=== PATIENT | female | born 1970 | race Hispanic/Latino ===

== ENCOUNTER 2017-10-15 11:15 | Outpatient (CLI) | payer MEDICARE, MEDICAID | END 2017-10-15 11:16 | disposition home or self-care (01) | LOC: BICRAD 11:15 | PROVIDERS: ATTEND Internal Medicine | DX: J01.90 Acute sinusitis, unspecified (principal) | CPT/HCPCS: 70220; 71046 ==

== ENCOUNTER 2017-12-31 14:02 | Emergency (ER) | payer MEDICARE, MEDICAID ==
[2017-12-31] MEDS ORDERED: ISOVUE-370 76%-LOCM 1 ML ONE (15:11)
[2017-12-31 15:17] LABS: #Eosinphils 0.1 thou/uL (0.0-0.7); #Lymphocytes 1.7 thou/uL (1.20-3.40); #Monocytes 0.4 thou/uL (0.11-0.59); #Neutrophils 3.7 thou/uL (1.40-6.50); %Basophils 0.5 % (0.0-1.0); %Eosinophils 2.5 % (0.0-10.0); %Lymphocytes 28.9 % (21.0-51.0); %Monocytes 6.1 % (0.0-10.0); Hemoglobin 13.8 g/dL (12.0-16.0); Mean Corpuscular HGB CONC 32.5 g/dL (32.0-36.0); Mean Corpuscular Hemoglobin 27.1 pg (27.0-31.0); Mean Corpuscular Volume 83.4 fl (81.0-99.0); Mean Platelet Volume 7.6 fL (7.4-10.4); Platelet Count 279 thou/uL (130-400); RBC Distribution Width 12.9 % (11.5-14.5); Red Blood Cell (RBC) Count 5.08 mill/uL (4.20-5.40)
[2017-12-31 15:40] LABS: ALT (SGPT) 21 U/L (8-55); AST (SGOT) 20 U/L (5-34); Alkaline Phosphatase 120 U/L (40-150); Anion Gap 12 mmol/L (10-20); BUN (Urea Nitrogen) 16 mg/dL (7.0-18.7); Bilirubin, Total 0.2 mg/dL (0.2-1.2); Calc. Creatinine Clearance 0 mL/min (70-130); Calcium 9.2 mg/dL (7.8-10.44); Carbon Dioxide 21 mmol/L (22-29); Chloride 108 mmol/L (98-107); Estimated GFR-MDRD 89; Globulin 3.6 g/dL (2.4-3.5); Glucose 119 mg/dL (70-105); Potassium 3.6 mmol/L (3.5-5.1); Protein, Total 7.6 g/dL (6.0-8.3); Sodium 137 mmol/L (136-145)
[2017-12-31] MEDS ORDERED: Dexamethasone 4 mg/ml Vial ONE (16:15)
[2017-12-31] MEDS ORDERED: Ketorolac Tromethamine 30 MG/ML VIAL ONE (16:15)
--- NOTE | 2017-12-31 16:38 | CT ---
EXAM: FACE CT WITH CONTRAST 12/31/17 COMPARISON: Head CT 07/06/15, 05/12/07, brain MRI 02/19/15. TECHNIQUE: Postcontrast face CT is performed in the axial plane. Reformatted images are submitted for interpreta tion. HISTORY: Pain. Parotiditis. FINDINGS: The visualized brain parenchyma is unremarkable. Bilateral ocular lenses are appropriately located. B oth globes are intact. Retrobulbar fat is preserved. Symmetric attenuation of the optic nerve and ocu lar rectus muscles. Adequate aeration of the sinuses and mastoid air cells. Aerodigestive tract is patent. No mucosal abnormality. Symmetric attenuation of the submandibular gla nd and sternocleidomastoid muscles. Nonspecific, nonenlarged soft tissue neck lymph nodes. Visualized great vessels of the neck are unrem arkable. Bilateral intraparotid lymph nodes are noted. Right parotid gland is fatty replaced and unremarkable. There is subtle hyperdensity involving the superficial lobe of the left parotic gland measuring 1.0 x 2.6 cm. Findings may represent a ill-defined enhancing mass versus possible fibrotic change or norm al pancreatic parenchyma that has not undergone fatty replacement. There is no evidence of inflammato ry change with regard to the parotid gland or periparotid soft tissues. IMPRESSION: Hyperdensity involving the superficial lobe of the left parotid gland without evidence of inflammator y change. Differential as detailed above. Followup imaging and ENT consultation is recommended. POS: [facility]
== END 2017-12-31 16:20 | disposition home or self-care (01) ==
LOC: ERS 14:02
DX: K11.8 Other diseases of salivary glands (principal)
CPT/HCPCS: 36415; 70487; 80053; 85025; 96374; 96375; J1100; J1885

== ENCOUNTER 2018-01-15 09:53 | Day surgery (SDC) | payer MEDICARE, MEDICAID ==
[2018-01-14 16:20] VITALS: BMI 36.6
[2018-01-15 10:50] LABS: BHCG - Serum Negative (NEGATIVE); Pregs Control Background? CLEAR/WHITE (CLR/WHITE); Pregs Control Bar Appear? YES (CONTROL BAR)
[2018-01-15] MEDS ORDERED: Lidocaine 1% w/Epinephrine 1:200K 30 ML VIAL ONE ×2 (11:37→11:44)
[2018-01-15] MEDS ORDERED: Fentanyl 100 MCG/2 ML VIAL ONE ×3 (11:42→14:28)
[2018-01-15] MEDS ORDERED: Promethazine HCl 25 MG/ML VIAL ONE (11:43)
[2018-01-15] MEDS ORDERED: Ondansetron HCl/PF 4 MG/2 ML Vial ONE ×3 (11:43→15:34)
[2018-01-15] MEDS ORDERED: Midazolam HCl 2 mg/2 ml Vial ONE (11:43)
[2018-01-15] MEDS ORDERED: Dexamethasone 20 MG/5 ML VIAL ONE (15:34)
[2018-01-15] MEDS ORDERED: Lidocaine 1% PF 5 ML VIAL ONE (15:34)
[2018-01-15] MEDS ORDERED: PROPOFOL 200 MG/20 ML VIAL ONE (15:34)
[2018-01-15] MEDS ORDERED: Hydrocodone-Acetamin 15 ML UDCUP ONE (15:44)
--- NOTE | 2018-01-16 00:18 | OP ---
DATE OF SERVICE: 01/15/2018 PREOPERATIVE DIAGNOSIS: Left parotid mass. POSTOPERATIVE DIAGNOSIS: Left parotid mass. PROCEDURES: Left superficial parotidectomy with facial nerve monitoring. SURGEON: Nawaf Acosta M.D. ESTIMATED BLOOD LOSS: 50 mL. COMPLICATIONS: None. ANESTHESIA: GETA. PROCEDURE: The patient was taken to the operating room and placed on the table. General endotrachea l anesthesia was obtained by the Anesthesia staff. Tube was secured in the right lower lip and shoul theodore roll was placed. The facial nerve monitor was placed into the orbicularis viri and orbicularis o culi muscles and was turned on setup and remained on throughout the procedure. Following this, the p atient was prepped and draped in standard surgical fashion. Modified Travis-type incision was made. The skin and subcutaneous tissues. Subplatysmal flaps were elevated on the neck and then extending t o a fat up fat down flat over the parotid gland. Following this, the gland was released from the att achment to the anterior sternocleidomastoid muscle and was retracted anteriorly. Dissection was then carried medially down the tragal cartilage, exposing the mastoid and stylomastoid area. Within this area, the facial nerve was identified. It was dissected laterally as it was, its superficial lobe w as freed from the deep lobe attachments. The area of multiple conglomerated lymph nodes and tumor li ke mass in the tail of parotid and posterior aspect of the parotid were removed. This wound was irri gated. Drain was placed and Monocryl stitches were used to reapproximate the parotid fascia, sternoc leidomastoid fascia as well as the platysmal layers. Subcuticular layers and Prolene stitches were p laced to reapproximate the skin. The patient tolerated the procedure well. Facial nerve monitor was turned off.
== END 2018-01-15 16:13 | disposition home or self-care (01) ==
LOC: SDC 09:53
PROVIDERS: ATTEND Otolaryngology Plastic Surgery within the Head & Neck
PROC: 0CBC0ZZ Excision of Left Parotid Duct, Open Approach (ICD-10-PCS; principal; 2018-01-15)
PROC: 00BM0ZZ Excision of Facial Nerve, Open Approach (ICD-10-PCS; 2018-01-15)
DX: K11.8 Other diseases of salivary glands (principal); Z86.73 Personal history of transient ischemic attack (TIA), and cerebral infarction without residual deficits; Z79.82 Long term (current) use of aspirin; Z79.2 Long term (current) use of antibiotics
CPT/HCPCS: 36415; 84703; 85014; 88307; 88312; 96374; J0131; J1100; J2001; J2250; J2405; J2550; J2704; J3010

== ENCOUNTER 2018-05-13 19:48 | Emergency (ER) | payer MEDICARE, MEDICAID ==
[~2018-05-13 19:48] MED LIST: ISOVUE-370 76%-LOCM 1 ML ONE
[2018-05-13 20:24] LABS: Bilirubin Negative (Negative); Blood, Urine Negative (Negative); Clarity CLEAR (Clear); Glucose, Urine (Dipstick) Negative (Negative); Leukocyte Small (Negative); Nitrite Negative (Negative); Protein, Urine (Dipstick) Negative (Neg-Trace); Specific Gravity, Urine 1.019 (1.002-1.036)
[2018-05-13 20:25] LABS: Bacteria/HPF Rare-Few HPF (None Seen); Hyaline Casts/LPF 0-3 HYALINE CAST LPF (0-3 Hyaline); Pathc Cast-AUWi Flag 0.14 (0-2.49); RBC/HPF 0-3 HPF (0-3)
[2018-05-13] MEDS ORDERED: Pantoprazole 40 MG VIAL ONE (22:42)
[2018-05-13] MEDS ORDERED: Metoclopramide HCl 10 MG/2 ML VIAL ONE (22:42)
[2018-05-13 22:44] LABS: #Eosinphils 0.2 thou/uL (0.0-0.7); #Lymphocytes 1.9 thou/uL (1.20-3.40); #Monocytes 0.5 thou/uL (0.11-0.59); %Basophils 0.3 % (0.0-1.0); %Eosinophils 2.7 % (0.0-10.0); %Lymphocytes 28.8 % (21.0-51.0); %Monocytes 7.2 % (0.0-10.0); Mean Corpuscular HGB CONC 33.1 g/dL (32.0-36.0); Mean Corpuscular Hemoglobin 27.3 pg (27.0-31.0); Mean Corpuscular Volume 82.4 fL (78.0-98.0); Mean Platelet Volume 7.4 fL (7.4-10.4); Platelet Count 284 thou/uL (130-400); RBC Distribution Width 12.7 % (11.5-14.5); Red Blood Cell (RBC) Count 4.75 mill/uL (4.20-5.40); White Blood Cell (WBC) Count 6.6 thou/uL (4.8-10.8)
[2018-05-13] MEDS ORDERED: Ondansetron PF 4 MG/2 ML Vial ONE (22:44)
[2018-05-13 22:50] LABS: BHCG - Serum Negative (NEGATIVE); Pregs Control Background? CLEAR/WHITE (CLR/WHITE); Pregs Control Bar Appear? YES (CONTROL BAR)
[2018-05-13 23:03] LABS: ALT (SGPT) 34 U/L (8-55); AST (SGOT) 27 U/L (5-34); Albumin 3.9 g/dL (3.5-5.0); Alkaline Phosphatase 164 U/L (40-150); Anion Gap 13 mmol/L (10-20); BUN (Urea Nitrogen) 15 mg/dL (7.0-18.7); Bilirubin, Total 0.2 mg/dL (0.2-1.2); Calc. Creatinine Clearance 0 mL/min (70-130); Calcium 9.4 mg/dL (7.8-10.44); Carbon Dioxide 21 mmol/L (22-29); Chloride 106 mmol/L (98-107); Estimated GFR-MDRD 77; Globulin 3.4 g/dL (2.4-3.5); Glucose 133 mg/dL (70-105); Lipase 28 U/L (8-78); Potassium 4.1 mmol/L (3.5-5.1); Protein, Total 7.3 g/dL (6.0-8.3); Sodium 136 mmol/L (136-145)
[2018-05-13] MEDS ORDERED: Dicyclomine 20 MG TAB ONE (23:03)
--- NOTE | 2018-05-13 23:16 | CT ---
CT OF THE ABDOMEN AND PELVIS WITH IV CONTRAST: 05/13/18 INDICATION: Periumbilical abdominal pain with burning and pulling that shoots up and down in the suprapubic epiga stric areas. COMPARISON: Prior exam dated 09/08/15. FINDINGS: There is wall thickening and pericolonic inflammatory stranding involving the proximal sigmoid colon. There is scattered colonic diverticula. There is hazy ground glass opacities seen with portions of the right middle lobe and right lower lobe . There is a small hiatal hernia. Gallbladder is surgically absent. Pancreas, adrenal gland and kidneys appear within normal limits. Spleen is normal appearing. IMPRESSION: No drainable fluid collection is evident. There is mild scattered degenerative and osteoarthritic kenia nge. IMPRESSION: 1. Findings suspicious for noncomplicated colonic diverticulitis. There is wall thickening and p ericolonic inflammatory stranding with scattered colonic diverticula involving the sigmoid colon. 2. Hazy ground glass opacity in the right middle lobe and right lower lobe may reflect an alveol itis of infectious or inflammatory etiology. Recommend correlation with the clinical exam. CT followu p to document resolution is recommended. 3. Cholecystectomy. 4. Other chronic findings as above. POS: [facility]
== END 2018-05-14 00:40 | disposition home or self-care (01) ==
LOC: ERS 19:48
DX: K57.32 Diverticulitis of large intestine without perforation or abscess without bleeding (principal); Z79.82 Long term (current) use of aspirin
CPT/HCPCS: 36415; 74177; 80053; 81003; 81015; 83690; 84703; 85025; 96365; 96375; C9113; J2405; J2765

== ENCOUNTER 2018-11-20 05:47 | Emergency (ER) | payer MEDICARE, MEDICAID ==
[2018-11-20 06:16] LABS: #Basophils 0.1 thou/uL (0.0-0.2); #Eosinphils 0.1 thou/uL (0.0-0.7); #Lymphocytes 1.7 thou/uL (1.20-3.40); #Monocytes 0.5 thou/uL (0.11-0.59); #Neutrophils 6.6 thou/uL (1.40-6.50); %Basophils 0.6 % (0.0-1.0); %Eosinophils 1.5 % (0.0-10.0); %Lymphocytes 18.5 % (21.0-51.0); %Monocytes 5.9 % (0.0-10.0); %Neutrophils 73.6 % (42.0-75.0); Hemoglobin 13.7 g/dL (12.0-16.0); Mean Corpuscular HGB CONC 33.3 g/dL (32.0-36.0); Mean Corpuscular Hemoglobin 27.7 pg (27.0-31.0); Mean Corpuscular Volume 83.1 fL (78.0-98.0); Mean Platelet Volume 7.6 fL (7.4-10.4); Platelet Count 296 thou/uL (130-400); RBC Distribution Width 12.5 % (11.5-14.5); Red Blood Cell (RBC) Count 4.96 mill/uL (4.20-5.40)
[2018-11-20 06:38] LABS: ALT (SGPT) 30 U/L (8-55); AST (SGOT) 34 U/L (5-34); Albumin 4.3 g/dL (3.5-5.0); Alkaline Phosphatase 174 U/L (40-150); Anion Gap 14 mmol/L (10-20); BUN (Urea Nitrogen) 11 mg/dL (7.0-18.7); Bilirubin, Total 0.5 mg/dL (0.2-1.2); Calc. Creatinine Clearance 0 mL/min (70-130); Calcium 9.6 mg/dL (7.8-10.44); Carbon Dioxide 22 mmol/L (22-29); Chloride 106 mmol/L (98-107); Estimated GFR-MDRD 73; Globulin 3.8 g/dL (2.4-3.5); Glucose 124 mg/dL (70-105); Lipase 28 U/L (8-78); Protein, Total 8.1 g/dL (6.0-8.3); Sodium 138 mmol/L (136-145)
[2018-11-20 06:57] LABS: Bilirubin Negative (Negative); Blood, Urine Trace (Negative); Clarity CLEAR (Clear); Glucose, Urine (Dipstick) Negative (Negative); Leukocyte Trace (Negative); Nitrite Negative (Negative); Protein, Urine (Dipstick) Negative (Neg-Trace); Specific Gravity, Urine 1.007 (1.002-1.036); Urobilinogen 0.2 mg/dL (0.2-1.0)
[2018-11-20 06:59] LABS: Bacteria/HPF None Seen HPF (None Seen); Hyaline Casts/LPF 0-3 HYALINE CAST LPF (0-3 Hyaline); Squamous Epithelial 0-3 HPF (0-3); WBC/HPF 0-3 HPF (0-3)
[2018-11-20] MEDS ORDERED: ISOVUE-370 76%-LOCM 1 ML ONE (07:46)
[2018-11-20 08:47] LABS: BHCG - Serum Negative (NEGATIVE); Pregs Control Background? CLEAR/WHITE (CLR/WHITE); Pregs Control Bar Appear? YES (CONTROL BAR)
[2018-11-20] MEDS ORDERED: Morphine 4 MG/ML VIAL ONE (08:53)
[2018-11-20] MEDS ORDERED: Ondansetron PF 4 MG/2 ML Vial ONE (08:53)
--- NOTE | 2018-11-20 10:01 | CT ---
CT ABDOMEN AND PELVIS WITH CONTRAST: Date: 11/20/18 Multiple axial tomograms obtained through the abdomen and pelvis with IV enhancement. INDICATION: Left lower quadrant abdominal pain. Fever. Comparison made to CT abdomen and pelvis dated 05/13/18. FINDINGS: Lung bases clear. Liver, spleen, and pancreas are unremarkable. Post cholecystectomy changes noted. Stomach and duodenu m unremarkable. Adrenal glands normal. Kidneys unremarkable. Urinary bladder unremarkable. Small bowel loops normal caliber. Appendix appears normal. There is inflammatory change surrounding the lower left colon in the left lower quadrant. There are s cattered diverticula in this region and the findings most likely represent changes of diverticulitis. There is no evidence of extraluminal fluid or abscess. There is no evidence of extraluminal gas. Uterus and adnexa unremarkable. Aorta normal caliber. Nonspecific periaortic lymph nodes are seen, with the largest node seen posteri or to the aorta in the lower abdomen measuring 1.5 cm greatest dimension. IMPRESSION: Inflammatory change involving the distal left colon in the left lower quadrant with associated divert icula most consistent with changes of diverticulitis. No evidence of extraluminal fluid or abscess. R ecommend follow-up colonoscopy after medical treatment to rule out mucosal lesion at this site. POS: [facility]
== END 2018-11-20 10:46 | disposition home or self-care (01) ==
LOC: ERS 05:47
DX: K57.92 Diverticulitis of intestine, part unspecified, without perforation or abscess without bleeding (principal); Z86.73 Personal history of transient ischemic attack (TIA), and cerebral infarction without residual deficits; Z79.82 Long term (current) use of aspirin
CPT/HCPCS: 74177; 80053; 81003; 81015; 83690; 84703; 85025; 96374; 96375; J2270; J2405; Q9966

== ENCOUNTER 2020-04-04 10:23 | Outpatient (CLI) | payer MEDICARE, MEDICAID ==
--- NOTE | 2020-04-04 11:47 | MRI ---
MR abdomen with and without IV contrast INDICATION: 50-year-old female with right upper quadrant abdominal pain with history of cholecystecto my TECHNIQUE: Multiplanar, multisequence MR images were obtained of the abdomen with and without IV cont rast. Contrast: 19 cc MultiHance. COMPARISON: CT the abdomen and pelvis dated November 20, 2018. FINDINGS: Liver: There is loss of the normal signal on the in and out of phase images consistent with diffuse f atty infiltration. There is areas of focal fatty sparing near the gallbladder fossa. Gallbladder: Surgically absent. The common bile but measures 3.8 mm. There is minimal to mild intrahe patic biliary ductal dilatation likely related to the patient's postcholecystectomy state. No intraluminal filling defect is evident within the visualized common bile duct. Pancreas: Normal. Adrenal glands: Normal. Kidneys: There is very tiny punctate cysts involving the right kidney. No solid renal lesion is demon strated. No hydronephrosis is noted. Spleen: Normal Spleen size: 9.4 cm. Lymphadenopathy or free fluid: None Vasculature: Appropriate flow voids are demonstrated. Bowel: Visualized bowel appears within normal limits. Osseous structures: No signal abnormality evident. IMPRESSION: 1. Fatty liver 2. Cholecystectomy 3. Tiny punctate cyst within the right kidney.
== END 2020-04-04 10:24 | disposition home or self-care (01) ==
LOC: BICMRI 10:23
PROVIDERS: ATTEND Physician Assistant Medical
DX: R10.11 Right upper quadrant pain (principal); K76.0 Fatty (change of) liver, not elsewhere classified; N28.1 Cyst of kidney, acquired; Z90.49 Acquired absence of other specified parts of digestive tract
CPT/HCPCS: 74183

== ENCOUNTER 2022-05-31 15:15 | Outpatient (CLI) | payer OTHER, MEDICAID | END 2022-05-31 15:16 | disposition home or self-care (01) | LOC: BICMAMMO 15:15 | PROVIDERS: ATTEND Family Medicine | DX: Z12.31 Encounter for screening mammogram for malignant neoplasm of breast (principal) | CPT/HCPCS: 77063; 77067 ==